=== PATIENT | male | born 1965 | race Caucasian/White ===

== ENCOUNTER 2023-05-14 16:36 | Emergency (ER) | payer BC ==
[2023-05-14] MEDS ORDERED: Ondansetron 4 MG Tab.DIS ONE (17:10)
[2023-05-14] MEDS ORDERED: oxyCODONE 5 MG Tab ONE (17:11)
[2023-05-14] MEDS ORDERED: Ondansetron 4 MG Tab.DIS PO ONE (17:12)
[2023-05-14] MEDS ORDERED: oxyCODONE 5 MG Tab PO ONE (17:12)
[2023-05-14] MEDS ORDERED: Acetaminophen/HYDROcodone 325-5 MG Tab ONE (18:00)
[2023-05-14] MEDS ORDERED: Levofloxacin 500 MG Tab PO ONE (18:06)
[2023-05-14] MEDS ORDERED: metroNIDAZOLE 500 MG Tab PO ONE (18:06)
== END 2023-05-14 18:21 | disposition home or self-care (01) ==
LOC: LB.ED 16:36
DX: S22.42XA Multiple fractures of ribs, left side, initial encounter for closed fracture (principal); J69.0 Pneumonitis due to inhalation of food and vomit; W00.0XXA Fall on same level due to ice and snow, initial encounter
CPT/HCPCS: 71250; 99283; A9270-GY; Q0162